=== PATIENT | female | born 1930 | race Caucasian/White ===

== ENCOUNTER 2018-03-09 12:02 | Inpatient (IN) ==
--- NOTE | 2018-03-09 12:30 | ED ---
HPI General Chief Complaint: Fall Stated Complaint: Fall Time Seen by Provider: 03/09/18 12:22 Source: patient and EMS Mode of arrival: EMS Limitations: no limitations History of Present Illness HPI Narrative: 87-year-old female patient presents to the ER today brought in by EMS, she states that she went out to get the mail and had tripped on the sidewalk which is currently being fixed, and she fell on the right side, complaining of right hip pain, right arm pains, right hand pains. She denies any head injury or loss consciousness. She states that she could get up on her own and was trying to get help for about half an hour. She had been given morphine by medics. Related Data Home Medications Medication Instructions Recorded Confirmed Unable to Obtain Home Meds 03/09/18 03/09/18 Allergies Allergy/AdvReac Type Severity Reaction Status Date / Time acetaminophen AdvReac Severe Nausea/Vomi Unverified 12/14/16 14:37 ting oxycodone AdvReac Severe Nausea/Vomi Unverified 12/14/16 14:37 ting Review of Systems ROS: all other systems reviewed are negative [facility] Social History Social History Second Hand Smoke Exposure: No Smoking Status: Never smoker How Often Do You Have a Drink Containing Alcohol: Never Recent Travel in [facility] within the Last 8 Weeks: No Recent Out of Country Travel within the Last 8 Weeks: No Immunization History Tetanus Immunization: >5 Years Exam Narrative Exam Narrative: GENERAL: Well-developed elderly female patient currently in mild distress. Awake and oriented x3. SKIN: Focused skin assessment warm/dry. HEAD: Atraumatic. Normocephalic. EYES: Pupils equal and round. No scleral icterus. No injection or drainage. ENT: No nasal bleeding or discharge. Mucous membranes pink and moist. NECK: Trachea midline. No JVD. Supple. CARDIOVASCULAR: Regular rate and rhythm. No murmur appreciated. RESPIRATORY: No accessory muscle use. Clear to auscultation. Breath sounds equal bilaterally. GASTROINTESTINAL: Abdomen soft, non-tender, nondistended. Hepatic and splenic margins not palpable. MUSCULOSKELETAL: No obvious deformities. No clubbing. No cyanosis. No edema. Pelvis: Stable, tender to palpation of the right hip area without obvious bony deformities. EXTREMITIES: No clubbing, cyanosis, or edema. There is notable ecchymosis at the right snuffbox area, tender to palpation, and the wrist below that area as well. NEUROLOGICAL: Awake and alert. No obvious cranial nerve deficits. Motor grossly within normal limits. Normal speech. PSYCHIATRIC: Appropriate mood and affect; insight and judgment normal. Course Initial Documented Vital Signs Temperature 98.9 F 03/09/18 12:08 Pulse Rate 58 L 03/09/18 12:08 Respiratory Rate 17 03/09/18 12:08 Blood Pressure 147/70 H 03/09/18 12:08 Pulse Oximetry 96 03/09/18 12:08 Last Documented Vital Signs Temperature 98.9 F 03/09/18 12:08 Pulse Rate 58 L 03/09/18 12:08 Respiratory Rate 17 03/09/18 12:08 Blood Pressure 147/70 H 03/09/18 12:08 Pulse Oximetry 96 03/09/18 12:08 Medical Decision Making MDM Narrative Medical decision making narrative: X-rays showing right wrist and right hip fractures. Sent in case is discussed with Dr. Junior for admission. In addition, case is discussed with Dr. Koch of orthopedics who is planning to take the patient to the OR today. Medical Screen Exam Complete: Yes Emergency Medical Condition: Yes Differential Diagnosis Differential Diagnosis: Contusions versus fractures versus dislocations Lab Data Lab results reviewed: Yes I reviewed the patient's lab results. Result diagrams: 03/09/18 14:00 03/09/18 14:00 Lab Results 03/09/18 03/09/18 Range/Units 14:00 14:00 WBC 10.8 (4.0-11.0) th/mm3 RBC 3.92 L (4.00-5.30) mil/mm3 Hgb 12.8 (11.6-15.3) gm/dL Hct 37.0 (35.0-46.0) % MCV 94.4 (80.0-100.0) fL MCH 32.7 (27.0-34.0) pg MCHC 34.7 (32.0-36.0) % RDW 12.8 (11.6-17.2) % Plt Count 187 (150-450) th/mm3 MPV 7.3 (7.0-11.0) fL Prelim Diff (Auto) Slide review pending Neut % (Auto) 82.2 H (16.0-70.0) % Lymph % (Auto) 12.2 (9.0-44.0) % [place] % (Auto) 4.0 (0.0-8.0) % Eos % (Auto) 1.1 (0.0-4.0) % Baso % (Auto) 0.5 (0.0-2.0) % Neut # (Auto) 8.9 H (1.8-7.7) th/mm3 Lymph # (Auto) 1.3 (1.0-4.8) th/mm3 [place] # (Auto) 0.4 (0.0-0.9) th/mm3 Eos # (Auto) 0.1 (0.0-0.4) th/mm3 Baso # (Auto) 0.1 (0.0-0.2) th/mm3 Differential Comment . Sodium 135 L (136-145) meq/L Potassium 4.2 (3.5-5.1) meq/L Chloride 100 (98-107) meq/L Carbon Dioxide 29.8 (21.0-32.0) meq/L Anion Gap 5 (5-15) meq/L BUN 13 (7-18) mg/dL Creatinine 0.65 (0.50-1.00) mg/dL Estimated GFR 86 L (>89) mL/min Random Glucose 102 (74-106) mg/dL Calcium 9.3 (8.5-10.1) mg/dL Imaging Data Attestation: I personally reviewed and interpreted this imaging study as follows : Radiologist's impression: Elbow X-Ray 03/09/18 12:25 CONCLUSION: No evidence of fracture. Femur X-Ray 03/09/18 12:25 CONCLUSION: Impacted right femoral neck fracture. Hand X-Ray 03/09/18 12:25 CONCLUSION: Severe osteoarthritic findings. Severe bone demineralization. No evidence of fracture in the hand. Hip X-Ray 03/09/18 12:25 CONCLUSION: Impacted right femoral neck fracture. Shoulder X-Ray 03/09/18 12:25 CONCLUSION: 1. High riding humeral head suggesting possible rotator cuff tear. 2. Mild acromioclavicular joint arthrosis. 3. No evidence of fracture. Wrist X-Ray 03/09/18 12:25 CONCLUSION: 1. Impacted distal radius fracture with 4 mm bony overlap. Alignment is neutral on the lateral view. 2. Nondisplaced ulnar styloid fracture. 3. Deformity of the scaphoid with possible age-indeterminate fracture. 4. Diffuse bone demineralization 5. Prominent osteoarthritic findings of the thumb CMC joint and midcarpal joint. Discharge Plan Discharge Disposition Patient Disposition: 30 Still Patient Discharge Condition Condition: Stable Discharge Details Anticipated Discharge Date: 03/09/18 Diagnosis: Fracture of wrist, Closed hip fracture Physicians Team ED Provider: Cyrus Crawford Primary Care Provider: Do Costa Palumbo Attending Provider: Yvon Bravo Discharge Interventions Interventions: Vital Signs Last Done: 03/09/18 12:13 Status ED Status: Admitted Patient
--- NOTE | 2018-03-09 13:20 | XR ---
EXAM DATE: 03/09/2018 1:17 PM EST AGE/SEX: 87 years / Female INDICATIONS: Right lateral hand pain after fall. CLINICAL DATA: This is the patient's initial encounter. Patient reports that signs and symptoms have been present for 1 day and indicates a pain score of 7/10. MEDICAL/SURGICAL HISTORY: None. None. COMPARISON: No prior exams available for comparison. FINDINGS: 3 views of the right hand. Severe diffuse bone demineralization. Severe narrowing, large osteophytes, and central bone erosion at the second and third digit proximal interphalangeal joints. Large osteop hytes and prominent joint narrowing at the second through fourth digit distal interphalangeal joints. No evidence of fracture. CONCLUSION: Severe osteoarthritic findings. Severe bone demineralization. No evidence of fracture in the hand. Electronically signed by: Ermias Maria MD 03/09/2018 1:19 PM EST
--- NOTE | 2018-03-09 13:21 | XR ---
EXAM DATE: 03/09/2018 1:11 PM EST AGE/SEX: 87 years / Female INDICATIONS: Right elbow pain after fall. CLINICAL DATA: This is the patient's initial encounter. Patient reports that signs and symptoms have been present for 1 day and indicates a pain score of 7/10. MEDICAL/SURGICAL HISTORY: None. None. COMPARISON: No prior exams available for comparison. FINDINGS: 4 views of the right elbow. Bone alignment within normal limits. No evidence of fracture. No evidence of joint narrowing. No focal bone erosion. No evidence of joint effusion. CONCLUSION: No evidence of fracture. Electronically signed by: Ermias Maria MD 03/09/2018 1:20 PM EST
--- NOTE | 2018-03-09 13:22 | XR ---
EXAM DATE: 03/09/2018 1:19 PM EST AGE/SEX: 87 years / Female INDICATIONS: Right shoulder pain after fall. CLINICAL DATA: This is the patient's initial encounter. Patient reports that signs and symptoms have been present for 1 day and indicates a pain score of 8/10. MEDICAL/SURGICAL HISTORY: None. None. COMPARISON: [facility], XR SHOULDER (MIN 4 VIEWS), RIGHT, 07/07/2016. . FINDINGS: 4 views of the right shoulder. Bone alignment within normal limits. No evidence of fracture. High rid ing humeral head suggesting rotator cuff insufficiency. Mild acromioclavicular joint arthrosis. Gleno humeral joint within normal limits. CONCLUSION: 1. High riding humeral head suggesting possible rotator cuff tear. 2. Mild acromioclavicular joint arthrosis. 3. No evidence of fracture. Electronically signed by: Ermias Maria MD 03/09/2018 1:21 PM EST
--- NOTE | 2018-03-09 13:24 | XR ---
EXAM DATE: 03/09/2018 1:18 PM EST AGE/SEX: 87 years / Female INDICATIONS: Right hip pain after fall. CLINICAL DATA: This is the patient's initial encounter. Patient reports that signs and symptoms have been present for 1 day and indicates a pain score of 8/10. MEDICAL/SURGICAL HISTORY: None. None. COMPARISON: No prior exams available for comparison. FINDINGS: 3 views of the right hip and pelvis. Right femoral neck fracture is noted with approximately 2 cm imp action. Right hip joint alignment within normal limits. No evidence of joint narrowing. CONCLUSION: Impacted right femoral neck fracture. Electronically signed by: Ermias Maria MD 03/09/2018 1:22 PM EST
--- NOTE | 2018-03-09 13:24 | XR ---
EXAM DATE: 03/09/2018 1:14 PM EST AGE/SEX: 87 years / Female INDICATIONS: Right femur pain after fall. CLINICAL DATA: This is the patient's initial encounter. Patient reports that signs and symptoms have been present for 1 day and indicates a pain score of 10/10. MEDICAL/SURGICAL HISTORY: None. None. COMPARISON: C, HIP RIGHT W AP PELVIS 2V, 03/09/2018. . FINDINGS: 5 views of the right femur. Impacted right femoral neck fracture. Total knee prosthesis. No other fra ctures identified. CONCLUSION: Impacted right femoral neck fracture. Electronically signed by: Ermias Maria MD 03/09/2018 1:23 PM EST
--- NOTE | 2018-03-09 13:27 | XR ---
EXAM DATE: 03/09/2018 1:20 PM EST AGE/SEX: 87 years / Female INDICATIONS: Right lateral wrist pain after fall. CLINICAL DATA: This is the patient's initial encounter. Patient reports that signs and symptoms have been present for 1 day and indicates a pain score of 9/10. MEDICAL/SURGICAL HISTORY: None. None. COMPARISON: [facility] [place] [facility] [place] COMPLETE RIGHT MIN 3V, 03/09/2018. . FINDINGS: 3 views of the right wrist. There is an impacted distal radius fracture 1 cm proximal to the radiocar pal joint. Diffuse bony mineralization. Nondisplaced ulnar styloid fracture. Deformity of the scaphoi d with possible age-indeterminate fracture. Prominent osteoarthritic findings of the thumb CMC joint and scaphoid trapezium trapezoid joint. Chondrocalcinosis of the scapholunate ligament, lunotriquetra l ligament, and triangular fibrocartilage. Severe narrowing of the central midcarpal joint at the cap itate lunate and capitate scaphoid articulations. CONCLUSION: 1. Impacted distal radius fracture with 4 mm bony overlap. Alignment is neutral on the lateral view. 2. Nondisplaced ulnar styloid fracture. 3. Deformity of the scaphoid with possible age-indeterminate fracture. 4. Diffuse bone demineralization 5. Prominent osteoarthritic findings of the thumb CMC joint and midcarpal joint. Electronically signed by: Ermias Maria MD 03/09/2018 1:26 PM EST
[2018-03-09] MEDS ORDERED: Morphine Inj 4 MG/ML Vial IV.PUSH ONE (14:07)
[2018-03-09 14:10] LABS: Baso # (Auto) 0.1 th/mm3 (0.0-0.2); Baso % (Auto) 0.5 % (0.0-2.0); Eos # (Auto) 0.1 th/mm3 (0.0-0.4); Eos % (Auto) 1.1 % (0.0-4.0); Hemoglobin 12.8 gm/dL (11.6-15.3); Lymph # (Auto) 1.3 th/mm3 (1.0-4.8); Lymph % (Auto) 12.2 % (9.0-44.0); Mean Corpuscular HGB Conc 34.7 % (32.0-36.0); Mean Corpuscular Hemoglobin 32.7 pg (27.0-34.0); Mean Corpuscular Volume 94.4 fL (80.0-100.0); Mean Platelet Volume 7.3 fL (7.0-11.0); Mono # (Auto) 0.4 th/mm3 (0.0-0.9); Neut # (Auto) 8.9 th/mm3 (1.8-7.7); Neut % (Auto) 82.2 % (16.0-70.0); Platelet Count 187 th/mm3 (150-450); Red Blood Count 3.92 mil/mm3 (4.00-5.30); Red Cell Distribution Width 12.8 % (11.6-17.2); White Blood Count 10.8 th/mm3 (4.0-11.0)
[2018-03-09 14:29] LABS: Calcium 9.3 mg/dL (8.5-10.1); Carbon Dioxide 29.8 meq/L (21.0-32.0); Potassium 4.2 meq/L (3.5-5.1)
[2018-03-09] MEDS ORDERED: Morphine Inj 4 MG/ML Vial IV.PUSH PRN (15:02)
--- NOTE | 2018-03-09 15:11 | P.HPIM ---
History of Present Illness Primary Care Physician: Do Costa Palumbo Chief Complaint: fall History of Present Illness: patient is a 87 y/o female with history of hypertension, gastroparesis and Saldaña's Esophagus, who presented to ER after she fell at home. she says that she tripped on the pavement earlier today and fell after which she couldn't stand up. she started to have pain to the right hip and wrist. she says that pain is mild while she's not moving. she denies any prodromal symptoms before the fall. she didn't pass out and with no head trauma. she denies any chest pain , sob or abdominal pain. Inpatient Certification: I certify that the inpatient services were ordered in accordance with Medicare regulations governing the order. This includes certification that hospital inpatient services are reasonable and necessary and in the case of services not specified as inpatient-only under 42 CFR 419.22(n), that they are appropriately provided as inpatient services in accordance to with the 2-midnight benchmark under 43 CFR 412.3(e) Estimated Total Length of Stay (Days): 3 Plans for Post Hospital Care: SNF Review of Systems All other systems reviewed negative except as stated in HPI PMFSH - History History Provided By: Patient, Taker [employer] / EMT - Medical History Medical History: Medical History (Last Reviewed 03/09/18 @ 15:06 by Yvon Bravo MD) Saldaña esophagus Gastroparesis H/O: hysterectomy Hypertension - Surgical History Surgical History: Surgical History (Last Reviewed 03/09/18 @ 15:06 by Yvon Bravo MD) Knee joint replacement status - Family History Family History: Family History (Last Reviewed 03/09/18 @ 15:06 by Yvon Bravo MD) Other No pertinent family history - Tobacco History Second Hand Smoke Exposure: No Tobacco Use In Past 30 Days: No Smoking Status: Never smoker - Alcohol History How Often Do You Have a Drink Containing Alcohol: Never - Travel History Recent Travel in the [place] Within the Last 8 Weeks: No Recent Travel Out of the Country Within the Last 8 Weeks: No - Immunization History Tetanus Immunization: >5 Years Medications and Allergies Active Medications: Active Medications Sodium Chloride (Ns Inj) 1,000 mls @ 84 mls/hr IV.CONT .[id number] CHERYL Morphine Sulfate (Morphine Inj) 2 mg IV.PUSH Q4H PRN PRN Reason: pain Ondansetron HCl (Zofran Inj) 4 mg IV.PUSH Q8H PRN PRN Reason: nausea Allergies Allergy/AdvReac Type Severity Reaction Status Date / Time acetaminophen AdvReac Severe Nausea/Vomi Unverified 12/14/16 14:37 ting oxycodone AdvReac Severe Nausea/Vomi Unverified 12/14/16 14:37 ting Home Medications Medication Instructions Recorded Confirmed Type Unable to Obtain Home Meds 03/09/18 03/09/18 History Exam Vital signs: Vital Signs 03/09/18 12:08 Temperature 98.9 F Pulse Rate 58 L Respiratory Rate 17 Blood Pressure 147/70 H Pulse Oximetry 96 Intake & Output 03/08/18 03/09/18 03/09/18 18:59 06:59 18:59 Weight 50.802 kg - Constitutional no acute distress - Routine HEENT Exam Eye: Present: PERRL - Routine Neck Exam Present: supple - Routine Respiratory Exam Present: CTA bilaterally - Routine Cardiovascular Exam Present: RRR - Routine Abdominal Exam Present: soft - Routine Extremities Exam Present: edema (of the right wrist.) - Routine Neurological Exam Present: alert, oriented X3 Results - Labs CBC & Chem 7: 03/09/18 14:00 03/09/18 14:00 Labs: Short CBC 03/09/18 Range/Units 14:00 WBC 10.8 (4.0-11.0) th/mm3 Hgb 12.8 (11.6-15.3) gm/dL Hct 37.0 (35.0-46.0) % Plt Count 187 (150-450) th/mm3 BMP 03/09/18 14:00 Sodium 135 L Potassium 4.2 Chloride 100 Carbon Dioxide 29.8 BUN 13 Creatinine 0.65 Calcium 9.3 - Imaging Impressions Elbow X-Ray 03/09/18 12:25 CONCLUSION: No evidence of fracture. Femur X-Ray 03/09/18 12:25 CONCLUSION: Impacted right femoral neck fracture. Hand X-Ray 03/09/18 12:25 CONCLUSION: Severe osteoarthritic findings. Severe bone demineralization. No evidence of fracture in the hand. Hip X-Ray 03/09/18 12:25 CONCLUSION: Impacted right femoral neck fracture. Shoulder X-Ray 03/09/18 12:25 CONCLUSION: 1. High riding humeral head suggesting possible rotator cuff tear. 2. Mild acromioclavicular joint arthrosis. 3. No evidence of fracture. Wrist X-Ray 03/09/18 12:25 CONCLUSION: 1. Impacted distal radius fracture with 4 mm bony overlap. Alignment is neutral on the lateral view. 2. Nondisplaced ulnar styloid fracture. 3. Deformity of the scaphoid with possible age-indeterminate fracture. 4. Diffuse bone demineralization 5. Prominent osteoarthritic findings of the thumb CMC joint and midcarpal joint. Caprini VTE Risk Assessment Caprini VTE Risk Assessment: Moderate/High Risk (score >= 2) Caprini Risk Assessment Model: Point Value = 1 Point Value = 2 Point Value = 3 Point Value = 5 Age 41-60 Minor surgery BMI > 25 kg/m2 Swollen legs Varicose veins or History of unexplained or recurrent spontaneous Oral contraceptives or hormone replacement Sepsis (< 1 month) Serious lung disease, including pneumonia (< 1 month) Abnormal pulmonary function Acute myocardial infarction Congestive heart failure (< 1 month) History of inflammatory bowel disease Medical patient at bed rest Age 61-74 Arthroscopic surgery Major open surgery (> 45 min) Laparoscopic surgery (> 45 min) Malignancy Confined to bed (> 72 hours) Immobilizing plaster cast Central venous access Age >= 75 History of VTE Family history of VTE Factor V Leiden Prothrombin [id number] Lupus anticoagulant Anticardiolipin antibodies Elevated serum homocysteine Heparin-induced thrombocytopenia Other congenital or acquired thrombophilia Stroke (< 1 month) Elective arthroplasty Hip, pelvis, or leg fracture Acute spinal cord injury (< 1 month) Prophylaxis Regimen: Total Risk Factor Score Risk Level Prophylaxis Regimen 0-1 Low Early ambulation 2 Moderate Order ONE of the following: *Sequential Compression Device (SCD) *Heparin 5000 units SQ BID 3-4 Higher Order ONE of the following medications: *Heparin 5000 units SQ TID *Enoxaparin/Lovenox 40 mg SQ daily (WT < 150 kg, CrCl > 30 mL/min) *Enoxaparin/Lovenox 30 mg SQ daily (WT < 150 kg, CrCl > 10-29 mL/min) *Enoxaparin/Lovenox 30 mg SQ BID (WT < 150 kg, CrCl > 30 mL/min) AND/OR *Sequential Compression Device (SCD) 5 or more Highest Order ONE of the following medications: *Heparin 5000 units SQ TID (Preferred with Epidurals) *Enoxaparin/Lovenox 40 mg SQ daily (WT < 150 kg, CrCl > 30 mL/min) *Enoxaparin/Lovenox 30 mg SQ daily (WT < 150 kg, CrCl > 10-29 mL/min) *Enoxaparin/Lovenox 30 mg SQ BID (WT < 150 kg, CrCl > 30 mL/min) AND *Sequential Compression Device (SCD) Assessment and Plan - Plan A/P - fall with : Right femoral neck fracture Impacted distal radius fracture and nondisplaced ulnar styloid fracture. keep NPO- consult ortho- continue with IV fluid and pain control. -hypertension will verify the home meds- vasotec prn- continue to monitor. -gastroparesis/ Saldaña esophagus; home meds to be verified- -DVT prophylaxis; chemical prophylaxis will be initiated post-op. Discussed Condition With: ER physician and the patient. Discharge Planning: pending ortho intervention.
[2018-03-09] MEDS ORDERED: ceFAZolin 2 GM Premix Inj 0 GM/0 ML PIGGYBACK IV.SIG ONE (18:27)
[2018-03-09] MEDS ORDERED: fentaNYL Citrate Inj 250 MCG/5 ML Ampul ONE (18:36)
[2018-03-09] MEDS ORDERED: ceFAZolin 2 GM Premix Inj 2 GM/50 ML PIGGYBACK IV.SIG ONE (20:11)
[2018-03-09] MEDS ORDERED: Tranexamic Acid Inj 1,000 MG/10 ML Ampul ONE (20:32)
[2018-03-09] MEDS ORDERED: Glycopyrrolate Inj 1 MG/5 ML Syringe IV.PUSH ONE ×2 (20:50)
[2018-03-09] MEDS ORDERED: Neostigmine Inj 5 MG/5 ML Syringe IV.PUSH ONE ×2 (20:50)
[2018-03-09] MEDS ORDERED: SODIUM CHLOR 0.9% IV.SIG SCH (21:00)
[2018-03-09] MEDS ORDERED: TRANEXAMIC ACID IV.SIG SCH (21:00)
--- NOTE | 2018-03-09 21:36 | MH ---
cc: Yomi FUNK DATE OF ADMISSION: 03/09/2018 CHIEF COMPLAINT: Right hip fracture, right distal radius fracture. HISTORY OF PRESENT ILLNESS: Mrs. Simmons is an 87-year-old female with history of hypertension, gastroparesis and Saldaña's esophagitis. She presented, after a mechanical fall at her home, to [facility]. Evaluation was significant for a right femoral neck fracture and a nondisplaced distal radius fracture. Orthopedic surgery consultation was requested. On presentation at bedside, she endorses right hip and groin pain as well as right wrist pain. She denies any left upper or lower extremity symptoms. She denies paresthesias. She rates her pain a 5/10. She denies other complaints. PAST MEDICAL HISTORY: Includes hypertension, gastroparesis, Saldaña's esophagus. PAST SURGICAL HISTORY: Right total knee arthroplasty. FAMILY HISTORY: Noncontributory. SOCIAL HISTORY: Nonsmoker, nondrinker. MEDICATIONS: Per hospital chart. ALLERGIES: Oxycodone. REVIEW OF SYSTEMS: GENERAL: No fever or chills. ABDOMEN: No nausea, vomiting. MUSCULOSKELETAL: Right hip pain and right wrist pain. NEUROLOGIC: No numbness, tingling. PSYCHIATRIC: No anxiety or depression. CHEST: No shortness of breath, no wheezing. CARDIO: No chest pain. PHYSICAL EXAMINATION: GENERAL: She is alert and oriented x 3 with a normal mood and affect. MUSCULOSKELETAL: Focused evaluation of the right lower extremity demonstrates a positive log roll. There is no tenderness over the knee, ankle or foot. There is positive EHL/IHL/tibialis anterior/gastroc. Sensation is intact to the sural, saphenous, SP, DP, tibial nerve distribution. Screening evaluation of the left lower extremity demonstrates a negative log roll. No tenderness with passive range of motion of the knee or ankle. Focused evaluation of the right upper extremity demonstrates sugar-tong splint in place, fingers exposed with moderate edema and ecchymoses. There is positive EPL/FPL/DS/DP/EDC. Sensation is intact to the median, radial, ulnar nerve distribution. There is full painless passive range of motion of the left upper extremity, including the shoulder, elbow, wrist and hand. IMAGING: X-rays of the right hip and right wrist demonstrate evidence of a displaced femoral neck fracture as well as demonstrate an impacted distal radius fracture with ulnar negative variance severe mid carpal arthritis. ASSESSMENT: 1. Right femoral neck fracture, displaced. 2. Right distal radius fracture, impaction with maintained neutral alignment. PLAN: I had a thorough discussion with Mrs. Simmons regarding her diagnoses. We discussed her recommendations for right bipolar hemiarthroplasty on the right hip, given femoral neck fracture. Relevant risks, benefits, expected postoperative course of surgical management were reviewed. Risks include but are not limited to, damage to surrounding blood vessels and nerves, infection, wound healing issues limb length discrepancy, hardware failure, periprosthetic fracture, and need for future surgery. We discussed that we would manage the right wrist nonoperatively with transition to a cast for approximately 6 weeks' duration in clinic followup. She should be strict nonweightbearing to the right wrist. She may weight bear through the right elbow. Postoperatively, she will be weightbearing as tolerated. Posterior hip precautions to the right lower extremity. We will make surgical arrangements for right hip bipolar hemiarthroplasty. All questions and concerns were addressed at bedside. Yomi Pelayo MD, CM/leslie , 07:56 PM , 08:05 PM
[2018-03-09] MEDS ORDERED: fentaNYL Citrate Inj 100 MCG/2 ML Ampul ONE (23:07)
--- NOTE | 2018-03-09 23:39 | MP ---
cc: ,Yomi Pelayo DATE OF OPERATION: 03/09/2018 DATE OF SERVICE: 03/09/2018 PREOPERATIVE DIAGNOSES: 1. Right femoral neck fracture. 2. Right nondisplaced distal radius fracture. POSTOPERATIVE DIAGNOSES: 1. Right femoral neck fracture. 2. Right nondisplaced distal radius fracture. OPERATION PERFORMED: 1. Right hip bipolar hemiarthroplasty. 2. Closed treatment of right distal radius fracture. SURGEON: Yomi Pelayo MD ANESTHESIA: General. ESTIMATED BLOOD LOSS: 50 mL. SPECIMENS: None. FLUIDS: Per anesthesia record. IMPLANTS: DePuy Corail hip system with a press-fit femoral stem, PIZARRO coated size 12, standard, no collar, 28 x 45 mm bipolar head, 28 mm, +1.5 mm femoral head. INDICATIONS: Please see history and physical for complete details. In summary, Mrs. Simmons is an 87-year-old female who sustained a mechanical fall resulting in a right femoral neck fracture as well as a right nondisplaced distal radius fracture. Orthopedic surgery consultation was requested. We discussed the recommendations for right hip bipolar hemiarthroplasty given displaced femoral neck fracture. Relevant risks, benefits, expected postoperative course of surgical management were reviewed. Risks include, but are not limited to damage to surrounding blood vessels or nerves, infection, wound healing issues, hardware failure, periprosthetic infection, fracture, pain, limb length discrepancy and need for future surgery. An ample opportunity was offered for questions to be answered and all her questions were answered to her apparent satisfaction. She agreed to proceed with surgery as per consent. DESCRIPTION OF PROCEDURE: The patient was identified in the preoperative holding area, and the operative site was marked. They were then brought back to the operating room under the care of the anesthesiology team then positioned supine on the OR table. All bony prominences were padded per protocol timeout was performed during which the patient's identity, site, site and nature of procedure was confirmed. The patient was then positioned in the left lateral decubitus position with the right side facing the ceiling. The right lower extremity was then prepped and draped in routine strict sterile fashion using triple prep solution and occlusive draping. A standard posterolateral approach was done using sharp dissection through the skin and subcutaneous tissues. The fascia was incised in line with the skin incision and gluteus vitaliy fibers were spread atraumatically. The short external rotators and capsule were taken off the femur as close to the femur as possible maintaining maximum length for later repair. These were then tagged with #2 FiberWire sutures for later repair. The femoral neck exposed a femoral neck cut approximately 50 mm proximal to the lesser tuberosity was made. The femoral head was then removed with use of a corkscrew device. All bony fragments relating to the femoral neck fracture were removed. Care was taken to check the contents of the acetabulum to ensure that there were no retained fragments. The femoral neck measured a size 45 mm. A 45 mm bipolar component was selected and trialed, which had excellent suction fit. Attention was then turned to preparation of the femur. The appropriate posterolateral starting point in the femur was created using the journal box inspector. The canal was identified and an overhanging neck was removed. A lateralizing reamer had been used. Broaching was then done from a size 8 broach up to a size 12 broach, with appropriate lateralization and anteversion. Trialing was then done and a standard neck, size 1.5 mm neck length was selected. The soft tissues were thoroughly irrigated with normal saline solution. The final implant was inserted and impacted gently with excellent fit, rotational stability and metaphyseal fill. The trunnion was cleaned and dried, and the bipolar component with a femoral head was inserted and secured. The hip was reduced. With the final implants in position, the soft tissue tension was appropriate. Leg length scientologist is appropriate. The hip was very stable to provocative testing including full flexion and external rotation. There was no impingement or dislocation. At mid flexion, we can internally rotate the hip to 80 degrees. At 90 degrees of flexion, we can internally rotate the hip to 70 degrees without impingement or dislocation. The hip was considered very stable. The sciatic nerve was tension free and continuous in its entirety. The hip was thoroughly lavaged. Hemostasis was achieved. The short external rotators and capsule were repaired back to the femur with #2 FiberWire sutures through transosseous tunnels. The superior capsulotomy as well as the quadratus femoris were repaired back to the femur with #1 Vicryl suture. The fascia was closed with 0 Vicryl suture in a vertical mattress manner along with a #1 Stratafix with excellent mechanical closure. The subcutaneous tissues were then closed with 2-0 Vicryl in an interrupted fashion followed by 2-0 Stratafix suture. Skin was then closed with 4-0 Monocryl in a subcuticular manner and reinforced with Dermabond. A waterproof dressing was then applied. The patient was reversed from anesthesia, extubated, and transferred to the PACU in stable condition. DISPOSITION: We anticipate admission for 2 midnights and then disposition pending PT/OT evaluation. POSTOPERATIVE RECOMMENDATIONS: Weightbearing status: Weightbearing as tolerated to the right lower extremity with posterior hip precautions. PLANNED DISPOSITION ON DISCHARGE: Pending, patient desires discharge home pending PT/OT evaluation. Deep venous thrombosis prophylaxis with Lovenox 40 mg daily x4 weeks. Outpatient up 2-[address] Pelayo at the orthopedic clinic. Yomi Pelayo MD, CM/lh , 11:04 PM , 11:15 PM
--- NOTE | 2018-03-09 23:57 | XR ---
EXAM DATE: 03/09/2018 11:51 PM EST AGE/SEX: 87 years / Female INDICATIONS: Post op. CLINICAL DATA: This is the patient's initial encounter. Patient reports that signs and symptoms have been present for 1 day and indicates a pain score of Nonresponsive. MEDICAL/SURGICAL HISTORY: Non-responsive. Non-responsive. COMPARISON: C, FEMUR RIGHT 2V, 03/09/2018. . FINDINGS: 3 images of the right hip show interval placement of a total hip prosthesis. This is in good position . Subcutaneous air is seen. Small amount of air within the joint. No fractures or dislocations. CONCLUSION: Total hip prosthesis in good position. Electronically signed by: Dequan Ramirez MD 03/09/2018 11:56 PM EST
[2018-03-10] MEDS ORDERED: *morphine SULFATE 4 MG/ML PERIprocedure ONLY ONE (00:06)
[2018-03-10] MEDS ORDERED: Famotidine 20 MG Tablet PO ONE (00:45)
[2018-03-10] MEDS: ceFAZolin 1 GM Premix Inj 1 GM/50 ML FROZ.PIGGY IV.SIG SCH ×3 (05:06→21:24)
[2018-03-10] MEDS: Sod Chloride 0.9% Inj 1,000 ML IV.CONT SCH ×3 (05:07→14:52)
--- NOTE | 2018-03-10 10:37 | P.PNIM ---
Subjective Interval history: f/u; right hip and wrist fractures in no acute distress. pain is fairly controlled. had some lightheadedness earlier today while working with PT. d/w the PT at the bedside. Physical Exam Vital signs: Vital Signs 03/09/18 12:08 03/09/18 18:09 03/09/18 23:15 Temperature 98.9 F 98.7 F 98.1 F Pulse Rate 58 L 69 73 Respiratory Rate 17 17 16 Blood Pressure 147/70 H 166/70 H 152/81 H Pulse Oximetry 96 96 99 03/09/18 23:45 03/10/18 00:00 03/10/18 00:15 Temperature Pulse Rate 62 60 56 L Respiratory Rate 22 24 20 Blood Pressure 167/76 H 168/72 H 178/80 H Pulse Oximetry 03/10/18 00:30 03/10/18 00:45 03/10/18 04:00 Temperature 98.0 F 98.4 F Pulse Rate 58 L 54 L 77 Respiratory Rate 22 18 17 Blood Pressure 176/77 H 129/59 L Pulse Oximetry 95 99 03/10/18 08:00 Temperature 97.9 F Pulse Rate 81 Respiratory Rate 18 Blood Pressure 111/55 L Pulse Oximetry 97 Intake & Output 03/09/18 03/10/18 03/10/18 18:59 06:59 18:59 Intake Total 1700 / 1700 Output Total 800 / 800 Balance 900 / 900 Weight 50.802 kg 50.8 kg Intake: IV 100 / 100 Ancef 1 GM Premix Inj 1 gm In 50 / 50 50 ml @ 100 mls/hr IV.SIG Q8H [facility] Rx#:[id number] Ancef 2 GM Premix Inj 2 gm In 50 / 50 50 ml @ 0 mls/hr IV.SIG .STK- MED ONE Rx#:[id number] Anesthesia Amount 1200 / 1200 Other 400 / 400 Output: Estimated Blood Loss 50 / 50 Urine Amount (Catheter) 750 / 750 Indwelling Urethral Catheter 750 / 750 Other: Weight On Admission 50.802 kg - Constitutional no acute distress - Routine Respiratory Exam Present: CTA bilaterally - Routine Cardiovascular Exam Present: RRR - Routine Abdominal Exam Present: soft - Routine Extremities Exam Comments: no pedal edema. - Routine Neurological Exam Present: alert, oriented X3 - Urinary Catheter Management Indwelling Urethral Catheter Cath placed during this visit: yes, but has since been removed by the nurse Reason for continuing: Not indwelling catheter Insertion date: 03/09/18 Insertion time: 14:20 Removal date: 03/10/18 Removal time: 10:08 Results - Labs CBC & Chem 7: 03/09/18 14:00 03/09/18 14:00 Laboratory Results - last 24 hr 03/09/18 03/09/18 14:00 14:00 WBC 10.8 RBC 3.92 L Hgb 12.8 Hct 37.0 MCV 94.4 MCH 32.7 MCHC 34.7 RDW 12.8 Plt Count 187 MPV 7.3 Prelim Diff (Auto) Slide review pending Neut % (Auto) 82.2 H Lymph % (Auto) 12.2 Gooding % (Auto) 4.0 Eos % (Auto) 1.1 Baso % (Auto) 0.5 Neut # (Auto) 8.9 H Lymph # (Auto) 1.3 Gooding # (Auto) 0.4 Eos # (Auto) 0.1 Baso # (Auto) 0.1 WBC Differential . Diff Scan Auto diff confirmed Differential Comment . Sodium 135 L Potassium 4.2 Chloride 100 Carbon Dioxide 29.8 Anion Gap 5 BUN 13 Creatinine 0.65 Estimated GFR 86 L Random Glucose 102 Calcium 9.3 - Imaging Impressions Hip X-Ray 03/09/18 00:00 CONCLUSION: Total hip prosthesis in good position. Elbow X-Ray 03/09/18 12:25 CONCLUSION: No evidence of fracture. Femur X-Ray 03/09/18 12:25 CONCLUSION: Impacted right femoral neck fracture. Hand X-Ray 03/09/18 12:25 CONCLUSION: Severe osteoarthritic findings. Severe bone demineralization. No evidence of fracture in the hand. Hip X-Ray 03/09/18 12:25 CONCLUSION: Impacted right femoral neck fracture. Shoulder X-Ray 03/09/18 12:25 CONCLUSION: 1. High riding humeral head suggesting possible rotator cuff tear. 2. Mild acromioclavicular joint arthrosis. 3. No evidence of fracture. Wrist X-Ray 03/09/18 12:25 CONCLUSION: 1. Impacted distal radius fracture with 4 mm bony overlap. Alignment is neutral on the lateral view. 2. Nondisplaced ulnar styloid fracture. 3. Deformity of the scaphoid with possible age-indeterminate fracture. 4. Diffuse bone demineralization 5. Prominent osteoarthritic findings of the thumb CMC joint and midcarpal joint. Assessment and Plan - Plan A/P - fall with : Right femoral neck fracture Impacted distal radius fracture and nondisplaced ulnar styloid fracture. s/p right hip hemiarthroplasty and closed repair of the right wrist fracture - continue with pain control and PT- management per ortho. -hypertension BP controlled- will hold home BP meds for now. -gastroparesis/ Saldaña esophagus; resume home meds. -DVT prophylaxis; per ortho. Discharge Planning: when cleared by ortho.
[2018-03-10] MEDS: Gabapentin 300 MG Capsule PO SCH ×2 (12:22→17:20)
[2018-03-10] MEDS: Lipase/Protease/Amylase 12/38/60 DR Capsule PO SCH ×2 (12:22→17:20)
[2018-03-10] MEDS: Enoxaparin Inj 40 MG/0.4 ML Syringe SQ SCH (13:30)
--- NOTE | 2018-03-10 16:46 | ECG ---
Date Performed: 03/09/2018 Time Performed: 16:17:28 PTAGE: 87 years EKG: SINUS BRADYCARDIA Since the previous tracing, no significant change noted BORDERLINE ECG PREVIOUS TRACING : 11/29/2000 15.38 DOCTOR: Cullen Gill Interpretating Date/Time 03/10/2018 16:42:10
[2018-03-10] MEDS: traZODone 50 MG Tablet PO SCH (21:25)
[2018-03-10] MEDS: Latanoprost 0.005% Opth Drops 2.5 ML Bottle LEFT EYE SCH (21:26)
[2018-03-11] MEDS: Sod Chloride 0.9% Inj 1,000 ML IV.CONT SCH ×2 (03:26→15:08)
[2018-03-11] MEDS: Levothyroxine 112 MCG Tablet PO SCH (05:17)
[2018-03-11 05:38] LABS: Hematocrit 32.1 % (35.0-46.0); Hemoglobin 11.3 gm/dL (11.6-15.3)
--- NOTE | 2018-03-11 06:41 | P.PNOP ---
Subjective Interval history: POD 2 s/p right hip hemiarthroplasty s/p right distal radius fx doing well. states out of bed with therapy Physical Exam Vital signs: Vital Signs 03/10/18 08:00 03/10/18 12:00 03/10/18 16:00 Temperature 97.9 F 98.5 F 98.1 F Pulse Rate 81 85 100 H Respiratory Rate 18 18 16 Blood Pressure 111/55 L 139/63 139/65 Pulse Oximetry 97 95 98 03/10/18 19:00 03/10/18 23:38 03/11/18 03:37 Temperature 98.8 F 98.2 F 98.1 F Pulse Rate 112 H 85 92 H Respiratory Rate 18 18 17 Blood Pressure 140/62 121/60 113/60 Pulse Oximetry 96 94 L 93 L Intake & Output 03/10/18 03/10/18 03/11/18 06:59 18:59 06:59 Intake Total 1700 / 1700 750 / 750 460 / 460 Output Total 800 / 800 1 / 1 Balance 900 / 900 750 / 750 459 / 459 Weight 50.8 kg 49.5 kg Intake: IV 100 / 100 100 / 100 Ancef 1 GM Premix Inj 1 gm In 50 / 50 100 / 100 50 ml @ 100 mls/hr IV.SIG Q8H [facility] Rx#:[id number] Ancef 2 GM Premix Inj 2 gm In 50 / 50 50 ml @ 0 mls/hr IV.SIG .STK- [facility] Rx#:[id number] Oral 750 / 750 360 / 360 Anesthesia Amount 1200 / 1200 Other 400 / 400 Output: Urine 1 / 1 Estimated Blood Loss 50 / 50 Urine Amount (Catheter) 750 / 750 Indwelling Urethral Catheter 750 / 750 Other: # Voids 3 # Bowel Movements 0 Weight On Admission 50.802 kg Narrative: RUE: +short arm splint. intact. NVI RLE: dressings clean and dry. intact. NVI. +abduction pillow - Urinary Catheter Management Indwelling Urethral Catheter Cath placed during this visit: yes, but has since been removed by the nurse Reason for continuing: Not indwelling catheter Insertion date: 03/09/18 Insertion time: 14:20 Removal date: 03/10/18 Removal time: 10:08 Results - Labs CBC & Chem 7: 03/11/18 05:00 03/09/18 14:00 Laboratory Results - last 24 hr 03/10/18 03/10/18 03/11/18 13:12 13:12 05:00 Hgb 12.4 11.3 L Hct 36.4 32.1 L Assessment and Plan - Assessment and Plan 1) right distal radius fx - nonop -NWB -maintain splint at all times -ok for platform walker 2) Right Hip Hemiarthroplasty - POD 2 -WBAT -posterior hip precautions -abduction pillow while in bed -DVT prophylaxis with lovenox -CM for DC planning. will likely require SNF placement. 3008 on chart. -maintain surgical dressing. if becomes saturated or bloody, ok to transition to daily dressings with primapore. -ortho clear for DC once arrangements made -f/u with Dr Pelayo in 2 weeks [id number] Prescription Drug Monitoring Database has been queried and verified prior to prescribing the controlled substance. Acute pain exception. This patient has normal, predicted, physiological, and time limited response to an adverse mechanical stimulus associated with surgery, trauma, or acute illness as described in my notes. There is a lack of alternative treatment options other than to include the prescribed narcotic treatment for this condition.
--- NOTE | 2018-03-11 06:59 | P.PNOP ---
Subjective Interval history: [place] is doing well this evening. Pain is well controlled. She was able to sit at bedside with PT. She denies other complaints. Physical Exam Vital signs: Vital Signs 03/10/18 08:00 03/10/18 12:00 03/10/18 16:00 Temperature 97.9 F 98.5 F 98.1 F Pulse Rate 81 85 100 H Respiratory Rate 18 18 16 Blood Pressure 111/55 L 139/63 139/65 Pulse Oximetry 97 95 98 03/10/18 19:00 03/10/18 23:38 03/11/18 03:37 Temperature 98.8 F 98.2 F 98.1 F Pulse Rate 112 H 85 92 H Respiratory Rate 18 18 17 Blood Pressure 140/62 121/60 113/60 Pulse Oximetry 96 94 L 93 L Intake & Output 03/10/18 03/10/18 03/11/18 06:59 18:59 06:59 Intake Total 1700 / 1700 750 / 750 460 / 460 Output Total 800 / 800 1 / 1 Balance 900 / 900 750 / 750 459 / 459 Weight 50.8 kg 49.5 kg Intake: IV 100 / 100 100 / 100 Ancef 1 GM Premix Inj 1 gm In 50 / 50 100 / 100 50 ml @ 100 mls/hr IV.SIG Q8H [facility] Rx#:[id number] Ancef 2 GM Premix Inj 2 gm In 50 / 50 50 ml @ 0 mls/hr IV.SIG .STK- [facility] Rx#:[id number] Oral 750 / 750 360 / 360 Anesthesia Amount 1200 / 1200 Other 400 / 400 Output: Urine 1 / 1 Estimated Blood Loss 50 / 50 Urine Amount (Catheter) 750 / 750 Indwelling Urethral Catheter 750 / 750 Other: # Voids 3 # Bowel Movements 0 Weight On Admission 50.802 kg - Constitutional no acute distress - Routine Extremities Exam Comments: Focused RLE and RUE eval demonstrated fingers exposed with edema. +EPL/FPL/EDC/ FDS/FDP. SILT M/R/U. +EHL/FHL/TA/gastroc. SILT sural/saphenous/SP/DP/tibial nerve. 2+ DP/PT pulse. Lateral hip dressing c/d/i. - Urinary Catheter Management Indwelling Urethral Catheter Cath placed during this visit: yes, but has since been removed by the nurse Reason for continuing: Not indwelling catheter Insertion date: 03/09/18 Insertion time: 14:20 Removal date: 03/10/18 Removal time: 10:08 Results - Labs CBC & Chem 7: 03/11/18 05:00 03/09/18 14:00 Laboratory Results - last 24 hr 03/10/18 03/10/18 03/11/18 13:12 13:12 05:00 Hgb 12.4 11.3 L Hct 36.4 32.1 L Assessment and Plan - Ortho Post Op Day # 1 - Assessment and Plan POD #1 s/p right hip hemiarthroplasty - WBAT RLE with posterior precautions - DVT prophy: Lovenox x 4 weeks - PT/OT final eval pending. Anticipate SNF placement - Pain control: multi-modal Right distal radius fracture - NWB RUE - Platform walker through elbow - Transition to short arm splint thru [facility] today PATIENT MAY BE DISCHARGED TO SNF PENDING FINAL PT/OT EVAL.
[2018-03-11] MEDS: Gabapentin 300 MG Capsule PO SCH ×3 (08:22→17:24)
[2018-03-11] MEDS: Lipase/Protease/Amylase 12/38/60 DR Capsule PO SCH ×3 (08:22→17:24)
--- NOTE | 2018-03-11 10:18 | P.PNIM ---
Subjective Interval history: f/u; right hip/ wrist fractures in no acute distress. looks and feels better today. pain is fairly controlled. Physical Exam Vital signs: Vital Signs 03/10/18 12:00 03/10/18 16:00 03/10/18 19:00 Temperature 98.5 F 98.1 F 98.8 F Pulse Rate 85 100 H 112 H Respiratory Rate 18 16 18 Blood Pressure 139/63 139/65 140/62 Pulse Oximetry 95 98 96 03/10/18 23:38 03/11/18 03:37 03/11/18 08:00 Temperature 98.2 F 98.1 F 98.2 F Pulse Rate 85 92 H 87 Respiratory Rate 18 17 16 Blood Pressure 121/60 113/60 125/62 Pulse Oximetry 94 L 93 L 84 L Intake & Output 03/10/18 03/11/18 03/11/18 18:59 06:59 18:59 Intake Total 750 / 750 460 / 460 Output Total 1 / 1 Balance 750 / 750 459 / 459 Weight 49.5 kg Intake: IV 100 / 100 Ancef 1 GM Premix Inj 1 gm In 100 / 100 50 ml @ 100 mls/hr IV.SIG Q8H [facility] Rx#:[id number] Oral 750 / 750 360 / 360 Output: Urine 1 / Other: # Voids 3 # Bowel Movements 0 - Constitutional no acute distress - Routine Respiratory Exam Present: CTA bilaterally - Routine Cardiovascular Exam Present: RRR - Routine Abdominal Exam Present: soft - Routine Extremities Exam Comments: no pedal edema. - Routine Neurological Exam Present: alert, oriented X3 - Urinary Catheter Management Indwelling Urethral Catheter Cath placed during this visit: yes, but has since been removed by the nurse Reason for continuing: Not indwelling catheter Insertion date: 03/09/18 Insertion time: 14:20 Removal date: 03/10/18 Removal time: 10:08 Results - Labs CBC & Chem 7: 03/11/18 05:00 03/09/18 14:00 Laboratory Results - last 24 hr 03/10/18 03/10/18 03/11/18 13:12 13:12 05:00 Hgb 12.4 11.3 L Hct 36.4 32.1 L Assessment and Plan - Plan A/P - fall with : Right femoral neck fracture Impacted distal radius fracture and nondisplaced ulnar styloid fracture. s/p right hip hemiarthroplasty and closed repair of the right wrist fracture - continue with pain control and PT- management per ortho. -hypertension BP controlled- will resume home meds upon discharge. -gastroparesis/ Saldaña esophagus; resume home meds. -DVT prophylaxis; subq Lovenox-per ortho. Discharge Planning: dc to SNF when arrangements made. f/u; pcp and ortho. see med list. d/w the patient.
--- NOTE | 2018-03-11 10:19 | P.DS ---
Date of admission: 03/09/18 14:56 Primary care physician: Do Costa Palumbo Brief History from admission: patient is a 87 y/o female with history of hypertension, gastroparesis and Saldaña's Esophagus, who presented to ER after she fell at home. she says that she tripped on the pavement earlier today and fell after which she couldn't stand up. she started to have pain to the right hip and wrist. she says that pain is mild while she's not moving. she denies any prodromal symptoms before the fall. she didn't pass out and with no head trauma. she denies any chest pain , sob or abdominal pain. DS: Medications - Discharge Medications Prescriptions: hydrocodone-acetaminophen 1 tab PO Q4H PRN #12 tab PRN Reason: pain DS: Summary Hospital Course: - fall with : Right femoral neck fracture Impacted distal radius fracture and nondisplaced ulnar styloid fracture. s/p right hip hemiarthroplasty and closed repair of the right wrist fracture - continue with pain control and PT- management per ortho. -hypertension BP controlled- will resume home meds upon discharge. -gastroparesis/ Saldaña esophagus; resume home meds. -DVT prophylaxis; subq Lovenox for four weeks-per ortho. - Time Spent with Patient Total time spent providing and/or coordinating discharge services: Less than 30 minutes - Quality: VTE Deep Vein Thrombosis/Pulmonary Embolism Present on Admission: No Exam Vital signs: Vital Signs 03/10/18 12:00 03/10/18 16:00 03/10/18 19:00 Temperature 98.5 F 98.1 F 98.8 F Pulse Rate 85 100 H 112 H Respiratory Rate 18 16 18 Blood Pressure 139/63 139/65 140/62 Pulse Oximetry 95 98 96 03/10/18 23:38 03/11/18 03:37 03/11/18 08:00 Temperature 98.2 F 98.1 F 98.2 F Pulse Rate 85 92 H 87 Respiratory Rate 18 17 16 Blood Pressure 121/60 113/60 125/62 Pulse Oximetry 94 L 93 L 84 L Intake & Output 03/10/18 03/11/18 03/11/18 18:59 06:59 18:59 Intake Total 750 / 750 460 / 460 Output Total Balance 750 / 750 459 / 459 Weight 49.5 kg Intake: IV 100 / 100 Ancef 1 GM Premix Inj 1 gm In 100 / 100 50 ml @ 100 mls/hr IV.SIG Q8H [facility] Rx#:[id number] Oral 750 / 750 360 / 360 Output: Urine Other: # Voids 3 # Bowel Movements 0 - Constitutional no acute distress - Routine Respiratory Exam Present: CTA bilaterally - Routine Cardiovascular Exam Present: RRR - Routine Abdominal Exam Present: soft - Routine Extremities Exam Comments: no pedal edema. - Routine Neurological Exam Present: alert, oriented X3 Results Procedures completed during hospitalization: s/p right hip hemiarthroplasty and closed repair of the right wrist fracture- Labs on day of discharge: Labs from last 24 hours 03/11/18 03/10/18 03/10/18 05:00 13:12 13:12 Hgb 11.3 L 12.4 Hct 32.1 L 36.4 - Impressions ITS Impressions Elbow X-Ray 03/09/18 12:25 CONCLUSION: No evidence of fracture. Femur X-Ray 03/09/18 12:25 CONCLUSION: Impacted right femoral neck fracture. Hand X-Ray 03/09/18 12:25 CONCLUSION: Severe osteoarthritic findings. Severe bone demineralization. No evidence of fracture in the hand. Hip X-Ray 03/09/18 12:25 CONCLUSION: Impacted right femoral neck fracture. Shoulder X-Ray 03/09/18 12:25 CONCLUSION: 1. High riding humeral head suggesting possible rotator cuff tear. 2. Mild acromioclavicular joint arthrosis. 3. No evidence of fracture. Wrist X-Ray 03/09/18 12:25 CONCLUSION: 1. Impacted distal radius fracture with 4 mm bony overlap. Alignment is neutral on the lateral view. 2. Nondisplaced ulnar styloid fracture. 3. Deformity of the scaphoid with possible age-indeterminate fracture. 4. Diffuse bone demineralization 5. Prominent osteoarthritic findings of the thumb CMC joint and midcarpal joint. Discharge Plan - Discharge Disposition Patient Disposition: Discharge to SNF - Discharge Condition Condition: Stable - Discharge Order Discharge Orders: Discharge Order (Routine); Ordered 03/11/18 Ordered By: Yvon Bravo Orthopedic Clear for Discharge (Routine); Ordered 03/11/18 Ordered By: Buddy Mar - Discharge Details Anticipated Discharge Date: 03/09/18 - Physicians Team Primary Care Provider: Do Costa Palumbo Attending Provider: Yvon Bravo Other Providers: Maximiliano Pelayo MD ; [employer] ; [facility], [facility] ; [facility],Agency
[2018-03-11] MEDS: Enoxaparin Inj 40 MG/0.4 ML Syringe SQ SCH (15:08)
[2018-03-11] MEDS ORDERED: Polyethylene Glycol 3350 17 GM Packet PO ONE (20:00)
[2018-03-11] MEDS ORDERED: Sodium Chloride 0.9% 2 ML Flush PRN IV.FLUSH (20:00)
[2018-03-11] MEDS: Latanoprost 0.005% Opth Drops 2.5 ML Bottle LEFT EYE SCH (20:13)
[2018-03-11] MEDS: traZODone 50 MG Tablet PO SCH (20:13)
[2018-03-11] MEDS ORDERED: Docusate Sodium 100 MG Capsule PO SCH (20:15)
[2018-03-11] MEDS ORDERED: Docusate Sodium 100 MG Capsule PO ONE (20:15)
[2018-03-11] MEDS: Sodium Chloride 0.9% 2 ML Flush BID IV.FLUSH SCH (23:36)
[2018-03-12] MEDS: Levothyroxine 112 MCG Tablet PO SCH (05:24)
--- NOTE | 2018-03-12 06:48 | P.PNOP ---
Subjective Interval history: POD 3 s/p right hip hemiarthroplasty s/p right distal radius fx doing well. out of bed with therapy. reports swelling of fingers Physical Exam Vital signs: Vital Signs 03/11/18 08:00 03/11/18 12:00 03/11/18 16:00 Temperature 98.2 F 98 F 98.5 F Pulse Rate 87 78 84 Respiratory Rate 16 16 16 Blood Pressure 125/62 105/55 L 123/60 Pulse Oximetry 94 L 94 L 95 03/11/18 20:00 03/12/18 00:00 03/12/18 04:00 Temperature 99.2 F 99.8 F H 99.5 F Pulse Rate 87 89 83 Respiratory Rate 18 18 18 Blood Pressure 122/59 L 111/66 125/60 Pulse Oximetry 94 L 94 L 95 Intake & Output 03/11/18 03/11/18 03/12/18 06:59 18:59 06:59 Intake Total 460 / 460 1000 / 1000 20 / 20 Output Total 1 / 1 400 / 400 Balance 459 / 459 600 / 600 20 / 20 Weight 49.5 kg 53.6 kg Intake: IV 100 / 100 1000 / 1000 NS Inj 1,000 ML @ 84 mls/hr IV. 1000 / 1000 CONT .[id number] [facility] Rx#:[id number] Ancef 1 GM Premix Inj 1 gm In 100 / 100 50 ml @ 100 mls/hr IV.SIG Q8H [facility] Rx#:[id number] Oral 360 / 360 20 / 20 Output: Urine 1 / 400 / 400 Other: # Voids 2 1 Date of Last Bowel Movement 03/08/18 # Bowel Movements 0 Narrative: RUE: +short arm splint. intact. NVI RLE: dressing clean and dry. intact. NVI - Urinary Catheter Management Indwelling Urethral Catheter Cath placed during this visit: yes, but has since been removed by the nurse Reason for continuing: Not indwelling catheter Insertion date: 03/09/18 Insertion time: 14:20 Removal date: 03/10/18 Removal time: 10:08 Results - Labs CBC & Chem 7: 03/11/18 05:00 03/09/18 14:00 - Procedures s/p right hip hemiarthroplasty and closed repair of the right wrist fracture- Assessment and Plan - Assessment and Plan POD #3 s/p right hip hemiarthroplasty - WBAT RLE with posterior precautions - DVT prophy: Lovenox x 4 weeks - PT/OT final eval pending. Anticipate SNF placement - Pain control: multi-modal Right distal radius fracture - NWB RUE - Platform walker through elbow ORTHO CLEARED FOR DISCHARGE TO SNF PENDING FINAL PT/OT EVAL. f/u with Dr Pelayo in 2 weeks
[2018-03-12] MEDS: Lipase/Protease/Amylase 12/38/60 DR Capsule PO SCH ×3 (08:10→17:16)
[2018-03-12] MEDS: Gabapentin 300 MG Capsule PO SCH ×3 (08:10→17:16)
[2018-03-12] MEDS: Sodium Chloride 0.9% 2 ML Flush BID IV.FLUSH SCH ×2 (08:11→22:09)
[2018-03-12] MEDS: Polyethylene Glycol 3350 17 GM Packet PO SCH ×2 (08:11→22:08)
[2018-03-12] MEDS: Docusate Sodium 100 MG Capsule PO SCH ×2 (08:11→22:09)
--- NOTE | 2018-03-12 10:35 | P.PNIM ---
Subjective Interval history: in no acute distress. pain is fairly controlled. no new complaints. d/w the RN and no acute issues over night. Physical Exam Vital signs: Vital Signs 03/11/18 12:00 03/11/18 16:00 03/11/18 20:00 Temperature 98 F 98.5 F 99.2 F Pulse Rate 78 84 87 Respiratory Rate 16 16 18 Blood Pressure 105/55 L 123/60 122/59 L Pulse Oximetry 94 L 95 94 L 03/12/18 00:00 03/12/18 04:00 03/12/18 08:00 Temperature 99.8 F H 99.5 F 98.5 F Pulse Rate 89 83 93 H Respiratory Rate 18 18 16 Blood Pressure 111/66 125/60 136/69 Pulse Oximetry 94 L 95 95 Intake & Output 03/11/18 03/12/18 03/12/18 18:59 06:59 18:59 Intake Total 1000 / 1000 20 20 Output Total 400 / 400 Balance 600 / 600 20 / 20 Weight 53.6 kg Intake: IV 1000 / 1000 NS Inj 1,000 ML @ 84 mls/hr IV. 1000 / 1000 CONT .[id number] [facility] Rx#:[id number] Oral Output: Urine 400 / 400 Other: # Voids 2 1 Date of Last Bowel Movement 03/08/18 - Constitutional no acute distress - Routine Respiratory Exam Present: CTA bilaterally - Routine Cardiovascular Exam Present: RRR - Routine Abdominal Exam Present: soft - Routine Extremities Exam Comments: no pedal edema. - Routine Neurological Exam Present: alert, oriented X3 - Urinary Catheter Management Indwelling Urethral Catheter Cath placed during this visit: yes, but has since been removed by the nurse Reason for continuing: Not indwelling catheter Insertion date: 03/09/18 Insertion time: 14:20 Removal date: 03/10/18 Removal time: 10:08 Results - Labs CBC & Chem 7: 03/11/18 05:00 03/09/18 14:00 - Procedures s/p right hip hemiarthroplasty and closed repair of the right wrist fracture- Assessment and Plan - Plan A/P - fall with : Right femoral neck fracture Impacted distal radius fracture and nondisplaced ulnar styloid fracture. s/p right hip hemiarthroplasty and closed repair of the right wrist fracture - continue with pain control and PT- management per ortho. -hypertension BP controlled- will resume home meds upon discharge. -gastroparesis/ [place] esophagus; resumed home meds. -DVT prophylaxis; subq Lovenox for four weeks-per ortho. Discharge Planning: dc to SNF when arrangements made. f/u; pcp and ortho. see med list. d/w the patient.
[2018-03-12] MEDS: Enoxaparin Inj 40 MG/0.4 ML Syringe SQ SCH (12:44)
[2018-03-12] MEDS: traZODone 50 MG Tablet PO SCH (22:09)
[2018-03-12] MEDS: Latanoprost 0.005% Opth Drops 2.5 ML Bottle LEFT EYE SCH (22:10)
[2018-03-13] MEDS: Levothyroxine 112 MCG Tablet PO SCH (07:22)
[2018-03-13] MEDS: Lipase/Protease/Amylase 12/38/60 DR Capsule PO SCH ×2 (08:38→13:18)
[2018-03-13] MEDS: Gabapentin 300 MG Capsule PO SCH ×2 (08:38→13:18)
[2018-03-13] MEDS: Docusate Sodium 100 MG Capsule PO SCH (08:39)
[2018-03-13] MEDS: Polyethylene Glycol 3350 17 GM Packet PO SCH (08:39)
[2018-03-13] MEDS: Sodium Chloride 0.9% 2 ML Flush BID IV.FLUSH SCH (08:41)
[2018-03-13] MEDS ORDERED: Lisinopril 10 MG Tablet PO SCH (09:00)
--- NOTE | 2018-03-13 10:55 | P.PNIM ---
Subjective Interval history: in no acute distress. sitting on the chair fairly comfortably. pain is fairly controlled. Physical Exam Vital signs: Vital Signs 03/12/18 12:00 03/12/18 16:00 03/12/18 20:00 Temperature 98.3 F 100.7 F H 98 F Pulse Rate 74 91 H 95 H Respiratory Rate 18 16 18 Blood Pressure 141/63 H 152/72 H 139/64 Pulse Oximetry 95 95 95 03/13/18 00:00 Temperature 98.1 F Pulse Rate 91 H Respiratory Rate 18 Blood Pressure 119/56 L Pulse Oximetry 85 L Intake & Output 03/12/18 03/13/18 03/13/18 18:59 06:59 18:59 Intake Total 480 / 480 80 / 80 Balance 480 / 480 80 / 80 Weight 52.8 kg Intake: Oral 480 / 480 80 / 80 Other: # Voids 3 3 Date of Last Bowel Movement 03/12/18 # Bowel Movements 1 - Constitutional no acute distress - Routine Respiratory Exam Present: CTA bilaterally - Routine Cardiovascular Exam Present: RRR - Routine Abdominal Exam Present: soft - Routine Neurological Exam Present: alert, oriented X3 - Urinary Catheter Management Indwelling Urethral Catheter Cath placed during this visit: yes, but has since been removed by the nurse Reason for continuing: Not indwelling catheter Insertion date: 03/09/18 Insertion time: 14:20 Removal date: 03/10/18 Removal time: 10:08 Results - Labs CBC & Chem 7: 03/11/18 05:00 03/09/18 14:00 - Procedures s/p right hip hemiarthroplasty and closed repair of the right wrist fracture- Assessment and Plan - Plan A/P - fall with : Right femoral neck fracture Impacted distal radius fracture and nondisplaced ulnar styloid fracture. s/p right hip hemiarthroplasty and closed repair of the right wrist fracture - continue with pain control and PT-cleared by ortho for discharge. -hypertension BP controlled- will resume home meds upon discharge. -gastroparesis/ [place] esophagus; resumed home meds. -DVT prophylaxis; subq Lovenox for four weeks-per ortho. Discharge Planning: dc to SNF when arrangements made. f/u; pcp and ortho. see med list. d/w the patient.
[2018-03-13] MEDS: Enoxaparin Inj 40 MG/0.4 ML Syringe SQ SCH (13:18)
[2018-03-13 13:37] VITALS: BP 94/50; PULSE 77; RESP 16; TEMP 97.9; O2SAT 96
== END 2018-03-13 15:10 ==
LOC: NEPC 12:02 → NEDA 14:56 → N06 15:35
PROVIDERS: ADMIT Internal Medicine; ATTEND Internal Medicine